=== PATIENT | male | born 1995 | race Caucasian/White ===

== ENCOUNTER 2018-02-25 01:08 | Inpatient (IN) | payer OTHER ==
[~2018-02-25] VITALS: Ht 175.3 cm; Wt 56.7 kg
[2018-02-25] MEDS ORDERED: ALBUTEROL HFA 8 GM INHALER INH PRN ×2 (04:30→12:45)
[2018-02-25] MEDS ORDERED: SODIUM CHLORIDE 0.65% NA SOLN 45 ML (OCEAN) PRN (04:30)
[2018-02-25] MEDS ORDERED: hydrOXYzine HCL 25 MG TAB PO PRN (04:30)
[2018-02-25] MEDS ORDERED: MAGNESIUM HYDROXIDE SUSP 30 ML UDC PO PRN (04:30)
[2018-02-25] MEDS ORDERED: BISMUTH SUBSALICYLATE PER ML OMNICELL CHARGE PO PRN (04:30)
[2018-02-25] MEDS ORDERED: ALUMINUM/MAGNESIUM SUSP 30 ML UDC PO PRN (04:30)
[2018-02-25] MEDS ORDERED: ACETAMINOPHEN 325 MG TAB PO PRN (04:30)
[2018-02-25] MEDS ORDERED: PATIENT'S ALLERGY INFO NEEDS ENTERED SCH (04:30)
[2018-02-25 05:05] VITALS: BP 135/90; PULSE 97; TEMP 36.4; BMI 18.5
[2018-02-25 06:22] VITALS: BP 135/90; PULSE 97; TEMP 36.4; BMI 18.5
[2018-02-25 06:26] VITALS: BP 135/90; PULSE 97; TEMP 36.4; BMI 18.5
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
[2018-02-25 12:18] VITALS: BP 117/79; PULSE 74; TEMP 36.4
[2018-02-25] MEDS ORDERED: PRVHFAIN INH (12:18)
[2018-02-25 13:50] VITALS: Ht 175.3 cm; Wt 56.7 kg
[2018-02-25] MEDS: hydrOXYzine HCL 25 MG TAB PO PRN (23:35)
[2018-02-26 06:54] VITALS: BP_SYST 117; BP_SYST 123; BP_DIAS 74; BP_DIAS 78; PULSE 61; PULSE 84; TEMP 36.3
[2018-02-26] MEDS ORDERED: SERTRALINE HCL 50 MG TAB PO ONE (14:08)
--- NOTE | 2018-02-26 14:08 | Psychiatric Progress Notes ---
Progress Note Date of Service Feb 26, 2018. Interval History 22-year-old single adopted -Marshallese male with a history of therapy for depression and anxiety as a 14-year-old, but no other mental health treatment, who presented for voluntary admission due to worsening depressive symptoms and suicidality. Chief Complaint "I'm OK.". Subjective Patient was seen & assessed interval progress reviewed with Treatment Team. the patient says that his mood is "neutral" today, rating it a 5-6/10 as opposed to the 2-3/10 he was on admission. He is willing to talk about medications today, and believes that he wants to start an antidepressant. He says he has never been on ADM before and so we talked about their purpose, and his choices. There is a family emeting scheduled with his mother tomorrow and she will be coming to visit today. He says that he is trying to focus away from his suicidal thoughts by using distracting activities, journaling and trying not to be alone, which he thinks is working to some degree. He reports good appetite and sleep, and has been talking in groups about his stressors. Review of Systems Constitutional: No fever, No chills, No sweats, No weight loss, No weakness, No fatigue, No problem reported ENT: No hearing loss, No unusual epistaxis, No nasal symptoms, No sore throat, No tinnitus, No dental problems, No trouble swallowing, No problem reported Respiratory: No cough, No sputum, No wheezing, No shortness of breath, No dyspnea on exertion, No dyspnea at rest, No hemoptysis, No problem reported Cardiovascular: No chest pain, No orthopnea, No PND, No edema, No claudication , No palpitations, No problem reported Abdomen: No pain, No nausea, No vomiting, No diarrhea, No constipation, No GI bleeding, No problem reported Musculoskeletal: No joint pain, No muscle pain, No swelling, No calf pain, No problem reported Neurologic: No memory loss, No paralysis, No weakness, No numbness/tingling, No vertigo, No balance problems, No problem reported Psychiatric: + depression symptoms (with SI) Integumentary: No rash, No itch, No new/changing skin lesions, No color change , No bleeding, No problem reported Sleep Information Total Hours of Sleep: 6.00 Meal Information Percent of Breakfast Consumed: 100 Percent of Lunch Consumed: 100 Percent of Dinner Consumed: 100 Mental Status Exam During interview pt is: alert and oriented, cooperative Appearance: appropriately dressed, appropriately groomed Eye contact is: fair Motor behavior is: steady gait & station, no abnormal motor movements Speech: normal in rate, rhythm & volume Affect: mood congruent, depressed, constricted Mood is: depressed Thought process: goal directed Thought content: reality based without delusions Suicidal thought are: denied Homicidal thoughts are: denied Hallucinations: denies auditory, denies visual Cognition: memory grossly intact, attention grossly intact, language grossly intact Intelligence estimated to be: consistent with level of education Insight: fair Judgement: fair Impression Today is willing to start and antidepressant. Reviewed R/B/A including black box warning and is willing for a trial of Zoloft 25 mg today increasing to 50 mg. tomorrow. Family meeting scheduled for tomorrow. Plan (1) Depression 02/25 - Reviewed diagnosis and treatment options, including medication (SSRIs, specifically discussed sertraline), therapy, and behavioral techniques for managing mood. -Discussed that anxiety is often exacerbated when mood is worse, and differential includes generalized anxiety disorder versus subsyndromal anxiety. -Offer hydroxyzine as needed for sleep and anxiety. -Discussed a trial of sertraline, including the risks, benefits, and side effects, and provided him with an up-to-date patient handout about it. He would like to think about it before he makes a decision. -Also discussed the role of therapy and behavioral activation. -Recommend family meeting, and refer for outpatient therapy. -Encourage participation in groups and therapy, work on healthy coping skills and a discharge safety plan. 02/26 - Start Zoloft 25 mg. today increasing to 50 mg. tomorrow. - Family meeting scheduled for tomorrow (2) Asthma Continue home inhaler. F/u with PCP as needed. Discharge / Aftercare Planning Primary Care Physician: Name: Dr. 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 Risk Factors Assessment Male: Yes : No /single/: Yes Higher / Fall in social status: No Health problems: No Mental Health Diagnoses: Yes Substance use disorders: No Previous attempt: Yes Previous psychiatric stay: No Hopelessness: Yes Smoker: No Protective Factors Assessment Anabaptist beliefs: Yes : No Responsible for young children: No Employed: No Stable relationships: Yes Supportive family: Yes Good rapport with provider: No Data Vital Signs Last 24 Hrs: Date Time Temp Pulse Resp B/P (MAP) Pulse Ox O2 Delivery O2 Flow Rate FiO2 02/26/18 06:54 36.3 61 16 117/74 84 123/78 Meds Administered Last 24 Hrs: Meds Administered (Past 24Hrs) Medications (Trade) Dose Ordered Sig/Shanelle Route Start Time Stop Time Status Last Admin Dose Admin Hydroxyzine HCl (Vistaril Tab) 50 mg HSZ PRN PO 02/25/18 04:30 03/27/18 04:29 02/25/18 23:35 50 MG Hydroxyzine HCl (Vistaril Tab) 25 mg Q4H PRN PO 02/25/18 04:30 03/27/18 04:29 02/25/18 05:38 25 MG Miscellaneous Information (Patient'S Allergy Info Needs Entered) 1 ea Q30M N/A 02/25/18 04:30 02/25/18 12:30 DC 02/25/18 04:30 1 EA Problem Qualifiers (1) Depression: Depression Type: major depressive disorder Major depression recurrence: recurrent Major depression episode severity: severe Psychotic features: without psychotic features
[2018-02-26] MEDS: hydrOXYzine HCL 25 MG TAB PO PRN (23:34)
[2018-02-27 06:54] VITALS: BP_SYST 116; BP_SYST 123; BP_DIAS 68; BP_DIAS 78; PULSE 65; PULSE 79; TEMP 36.4
[2018-02-27] MEDS: SERTRALINE HCL 50 MG TAB PO SCH (08:27)
--- NOTE | 2018-02-27 10:42 | Psychiatric Progress Notes ---
Progress Note Date of Service Feb 27, 2018. Interval History 22-year-old single adopted -Northern Irish male with a history of therapy for depression and anxiety as a 14-year-old, but no other mental health treatment, who presented for voluntary admission due to worsening depressive symptoms and suicidality. Chief Complaint "I'm OK.". Subjective Patient was seen & assessed interval progress reviewed with Treatment Team. He received his initial doses of Zoloft and denies side effects. He reports difficulty falling asleep last night and required a prn of vistaril. He frequently struggles with sleep at home. His mood remains depressed, and he does not feel ready for discharge. He has a meeting this afternoon with him mother, and has nothing in particular that he wants to talk about as he feels he has told her everything that is going on with him. He is attending all of the groups and finding them helpful. He denies any SI today so far. He does feel anxious and tries to distract himself when it occurs. He has asked his mother to bring in his Rubic's Cube which is something he manipulates to dispel his anxiety. He denies that his anxiety is triggered by anything in particular. Review of Systems Constitutional: No fever, No chills, No sweats, No weight loss, No weakness, No fatigue, No problem reported ENT: No hearing loss, No unusual epistaxis, No nasal symptoms, No sore throat, No tinnitus, No dental problems, No trouble swallowing, No problem reported Respiratory: No cough, No sputum, No wheezing, No shortness of breath, No dyspnea on exertion, No dyspnea at rest, No hemoptysis, No problem reported Cardiovascular: No chest pain, No orthopnea, No PND, No edema, No claudication , No palpitations, No problem reported Abdomen: No pain, No nausea, No vomiting, No diarrhea, No constipation, No GI bleeding, No problem reported Musculoskeletal: No joint pain, No muscle pain, No swelling, No calf pain, No problem reported Neurologic: No memory loss, No paralysis, No weakness, No numbness/tingling, No vertigo, No balance problems, No problem reported Psychiatric: + depression symptoms, + anxiety, + insomnia Integumentary: No rash, No itch, No new/changing skin lesions, No color change , No bleeding, No problem reported Sleep Information Total Hours of Sleep: 6.00 Meal Information Percent of Breakfast Consumed: 100 Percent of Lunch Consumed: 90 Percent of Dinner Consumed: 100 Mental Status Exam During interview pt is: alert and oriented, cooperative Appearance: appropriately dressed, appropriately groomed Eye contact is: fair Motor behavior is: steady gait & station, no abnormal motor movements Speech: normal in rate, rhythm & volume Affect: mood congruent, depressed, constricted Mood is: depressed Thought process: goal directed Thought content: reality based without delusions Suicidal thought are: denied Homicidal thoughts are: denied Hallucinations: denies auditory, denies visual Cognition: memory grossly intact, attention grossly intact, language grossly intact Intelligence estimated to be: consistent with level of education Insight: fair Judgement: fair Impression Tolerating zoloft, which goes to 50 mg. today. More anxious today than yesterday and doesn't feel that he is ready to go home. Will have meeting with adopted mom this afternoon Plan (1) Depression 02/25 - Reviewed diagnosis and treatment options, including medication (SSRIs, specifically discussed sertraline), therapy, and behavioral techniques for managing mood. -Discussed that anxiety is often exacerbated when mood is worse, and differential includes generalized anxiety disorder versus subsyndromal anxiety. -Offer hydroxyzine as needed for sleep and anxiety. -Discussed a trial of sertraline, including the risks, benefits, and side effects, and provided him with an up-to-date patient handout about it. He would like to think about it before he makes a decision. -Also discussed the role of therapy and behavioral activation. -Recommend family meeting, and refer for outpatient therapy. -Encourage participation in groups and therapy, work on healthy coping skills and a discharge safety plan. 02/26 - Start Zoloft 25 mg. today increasing to 50 mg. tomorrow. - Family meeting scheduled for tomorrow 02/27 - Continue current meds - Family meeting with adopted mother this afternoon - Will need both a psychiatric prescriber and a therapist post discharge (2) Asthma Continue home inhaler. F/u with PCP as needed. Discharge / Aftercare Planning Primary Care Physician: Name: Dr. 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 Risk Factors Assessment Male: Yes : No /single/: Yes Higher / Fall in social status: No Health problems: No Mental Health Diagnoses: Yes Substance use disorders: No Previous attempt: Yes Previous psychiatric stay: No Hopelessness: Yes Smoker: No Protective Factors Assessment Christian beliefs: Yes : No Responsible for young children: No Employed: No Stable relationships: Yes Supportive family: Yes Good rapport with provider: No Data Vital Signs Last 24 Hrs: Date Time Temp Pulse Resp B/P (MAP) Pulse Ox O2 Delivery O2 Flow Rate FiO2 02/27/18 06:54 36.4 65 16 116/68 79 123/78 Meds Administered Last 24 Hrs: Meds Administered (Past 24Hrs) Medications (Trade) Dose Ordered Sig/Shanelle Route Start Time Stop Time Status Last Admin Dose Admin Sertraline HCl (Zoloft Tab) 50 mg QAM PO 02/27/18 09:00 03/29/18 08:59 02/27/18 08:27 50 MG Sertraline HCl (Zoloft Tab) 25 mg 1408 ONCE PO 02/26/18 14:08 02/26/18 14:25 DC 02/26/18 14:52 25 MG Problem Qualifiers (1) Depression: Depression Type: major depressive disorder Major depression recurrence: recurrent Major depression episode severity: severe Psychotic features: without psychotic features
[2018-02-27] MEDS: NICOTINE POLACRILEX 2 MG GUM MT PRN ×3 (13:21→18:19)
[2018-02-27] MEDS: hydrOXYzine HCL 25 MG TAB PO PRN (23:34)
[2018-02-28 06:43] VITALS: BP_SYST 109; BP_SYST 118; BP_DIAS 70; BP_DIAS 76; PULSE 62; PULSE 76; TEMP 36.5
[2018-02-28] MEDS: NICOTINE POLACRILEX 2 MG GUM MT PRN ×4 (08:30→21:18)
[2018-02-28] MEDS: SERTRALINE HCL 50 MG TAB PO SCH (08:48)
--- NOTE | 2018-02-28 09:43 | Psychiatric Progress Notes ---
Progress Note Date of Service Feb 28, 2018. Interval History 22-year-old single adopted -[place] male with a history of therapy for depression and anxiety as a 14-year-old, but no other mental health treatment, who presented for voluntary admission due to worsening depressive symptoms and suicidality. Chief Complaint "All right, just anxious ". Subjective Patient was seen & assessed interval progress reviewed with Nursing. Staff report he is attending groups and participating, had a family meeting with his mother yesterday that went well. He is being referred for outpatient mental healthcare. He states that his mood has improved, although he remains anxious, frequently worrying about school and his breakup. He notes he is less focused on these things and he was on admission, but is still reminded of the multiple times throughout the day. He is practicing ways to cope with this, including distracting himself, and is making plans to spend time with his friends after discharge as he knows this will make him feel better. He denies suicidal thoughts, reports fair sleep, with some disruption due to anxious thoughts. He denies any side effects to sertraline. He is hopeful to feel ready for discharge tomorrow. Sleep Information Total Hours of Sleep: 6.25 Meal Information Percent of Breakfast Consumed: 100 Percent of Lunch Consumed: 100 Percent of Dinner Consumed: 100 Mental Status Exam During interview pt is: alert and oriented, cooperative Appearance: appropriately dressed, appropriately groomed Eye contact is: fair Motor behavior is: steady gait & station, psychomotor agitation (Jiggling his foot throughout the interview) Speech: normal in rate, rhythm & volume Affect: mood congruent, anxious, constricted Mood is: anxious Thought process: goal directed, linear, logical, clear, coherent Thought content: reality based without delusions Suicidal thought are: denied Homicidal thoughts are: denied Hallucinations: denies auditory, denies visual Cognition: memory grossly intact, attention grossly intact, language grossly intact Intelligence estimated to be: consistent with level of education Insight: good Judgement: good Impression Tolerating zoloft, which we continue to titrate upwards. Continues to have significant anxiety, but is actively working on ways to cope with this. Had a family meeting with his mother yesterday, and she is supportive. We are working towards discharge, possibly as early as tomorrow if he continues to improve. For now, he continues to require inpatient treatment due to risk for suicide if discharged prematurely. Plan (1) Depression 02/25 - Reviewed diagnosis and treatment options, including medication (SSRIs, specifically discussed sertraline), therapy, and behavioral techniques for managing mood. -Discussed that anxiety is often exacerbated when mood is worse, and differential includes generalized anxiety disorder versus subsyndromal anxiety. -Offer hydroxyzine as needed for sleep and anxiety. -Discussed a trial of sertraline, including the risks, benefits, and side effects, and provided him with an up-to-date patient handout about it. He would like to think about it before he makes a decision. -Also discussed the role of therapy and behavioral activation. -Recommend family meeting, and refer for outpatient therapy. -Encourage participation in groups and therapy, work on healthy coping skills and a discharge safety plan. 02/26 - Start Zoloft 25 mg. today increasing to 50 mg. tomorrow. - Family meeting scheduled for tomorrow 02/27 - Continue current meds - Family meeting with adopted mother this afternoon - Will need both a psychiatric prescriber and a therapist post discharge 02/28 -Continue sertraline and increased to 75 mg daily for tomorrow. -Refer for outpatient follow-up with a psychiatrist and therapist. -Continue to participate in therapy, work on healthy coping skills specifically for anxiety, and work on discharge safety plan. (2) Asthma Continue home inhaler. F/u with PCP as needed. Discharge / Aftercare Planning Primary Care Physician: Name: Dr. 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 Risk Factors Assessment Male: Yes : No /single/: Yes Higher / Fall in social status: No Health problems: No Mental Health Diagnoses: Yes Substance use disorders: No Previous attempt: Yes Previous psychiatric stay: No Hopelessness: Yes Smoker: No Protective Factors Assessment Adventism beliefs: Yes : No Responsible for young children: No Employed: No Stable relationships: Yes Supportive family: Yes Good rapport with provider: No Data Vital Signs Last 24 Hrs: Date Time Temp Pulse Resp B/P (MAP) Pulse Ox O2 Delivery O2 Flow Rate FiO2 02/28/18 06:43 36.5 62 18 109/70 76 118/76 Meds Administered Last 24 Hrs: Meds Administered (Past 24Hrs) Medications (Trade) Dose Ordered Sig/Shanelle Route Start Time Stop Time Status Last Admin Dose Admin Sertraline HCl (Zoloft Tab) 50 mg QAM PO 02/27/18 09:00 03/29/18 08:59 02/28/18 08:48 50 MG Sertraline HCl (Zoloft Tab) 25 mg 1408 ONCE PO 02/26/18 14:08 02/26/18 14:25 DC 02/26/18 14:52 25 MG Problem Qualifiers (1) Depression: Depression Type: major depressive disorder Major depression recurrence: recurrent Major depression episode severity: severe Psychotic features: without psychotic features
[2018-03-01 06:30] VITALS: BP_SYST 110; BP_SYST 117; BP_DIAS 70; PULSE 67; PULSE 84; TEMP 36.8
[2018-03-01] MEDS ORDERED: SERTRALINE HCL 50 MG TAB PO SCH (09:00)
[2018-03-01] MEDS ORDERED: ZLF50 PO (09:08)
[2018-03-01] MEDS: NICOTINE POLACRILEX 2 MG GUM MT PRN ×2 (09:10→14:18)
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
--- NOTE | 2018-03-01 10:01 | Psych Management Progress Note ---
Psychiatry Miscellaneous Date of Service: Mar 01, 2018. I personally reviewed the patient's case and MSE and participated in the medical decision making around his discharge.
== END 2018-03-01 17:15 | disposition home or self-care (01) | DRG 885 ==
LOC: C.MHU 04:30
PROVIDERS: ADMIT Psychiatry & Neurology Child & Adolescent Psychiatry; ATTEND Psychiatry & Neurology Psychiatry
DX: F33.2 Major depressive disorder, recurrent severe without psychotic features (principal); R45.851 Suicidal ideations; J45.909 Unspecified asthma, uncomplicated; F17.200 Nicotine dependence, unspecified, uncomplicated; Z91.013 Allergy to seafood; Z91.048 Other nonmedicinal substance allergy status